=== PATIENT | male | born 1970 | race Caucasian/White ===

== ENCOUNTER 2017-12-29 11:59 | Outpatient (CLI) ==
--- NOTE | 2017-12-29 13:37 | MRI ---
EXAM: MRI right knee without contrast. HISTORY: Right hand pain. Sprain. Strain. No right hand surgery reported. Cannot speeder tender. Injury. TECHNIQUE: Using a local extremity coil on a high field strength magnet multiplanar multisequence MR I was performed of the right hand using a large field of view without intravenous or intra-articular gadolinium contrast. FINDINGS: I do not have prior radiographs of the right hand available for comparison at the time of this dictation. Alignment of the right hand shows slight radial subluxation first metacarpal with respect to the trap ezium. No acute fracture. No bone erosions. Some interphalangeal joint as well as metacarpal phala ngeal joint osteoarthrosis. Trace metacarpal-phalangeal joint effusions. Osteoarthrosis first carpo metacarpal joint as well as radiocarpal joint. Intraosseous cyst formation distal scaphoid. The exit of the carpal tunnel shows some focal increased T2 signal intensity to the median nerve. Mu scle bulk shows normal signal intensity. The dorsal extensor and palmar flexor tendons grossly intac t without tendon bow stringing. Some third digit dorsal extensor and palmar flexor tenosynovitis . Some questionable involvement of the second and fourth palmar flexor tendons.. Some mild soft tissue edema/swelling.. IMPRESSION: Recommendation is obtainment and correlation with plain film radiographs of the right haynes nd as none are available for comparison at the time of this dictation. No acute fracture. Osteoarthrosis as described. Trace metacarpal-phalangeal joint effusions. Some focal increased T2 signal intensity to the median nerve along the exit of the carpal tunnel. Co rrelate clinically for signs/symptoms of carpal tunnel syndrome. Some questionable third dorsal extensor and palmar flexor tenosynovitis. Some questionable involvemen t of the second and fourth palmar flexor tendons as well. Mild soft tissue edema/swelling.
== END 2017-12-29 12:00 | disposition home or self-care (01) ==
LOC: RAD 11:59
PROVIDERS: ATTEND Orthopaedic Surgery
DX: M79.641 Pain in right hand (principal); S63.652D Sprain of metacarpophalangeal joint of right middle finger, subsequent encounter; S66.811A Strain of other specified muscles, fascia and tendons at wrist and hand level, right hand, initial encounter